=== PATIENT | female | born 1930 | race Caucasian/White ===

== ENCOUNTER → 2017-01-07 | Day surgery (SDC) | payer MEDICARE, OTHER ==
[~2017-01-07] MED LIST: AMLODIPINE BESY10 MG PO; FUROSEMIDE40 MG PO; PRAVASTATIN SOD40 MG PO; PROTONIX40 MG PO; TENORMIN 50 MG50 MG PO
== END | disposition home or self-care (01) ==
LOC: OR 07:17
PROVIDERS: Internal Medicine Gastroenterology
PROC: 0D748ZZ Dilation of Esophagogastric Junction, Via Natural or Artificial Opening Endoscopic (ICD-10-PCS; 2017-01-07)
PROC: 0DB68ZZ Excision of Stomach, Via Natural or Artificial Opening Endoscopic (ICD-10-PCS; principal; 2017-01-07 08:00)
DX: D13.1 Benign neoplasm of stomach (principal); K22.70 Barrett's esophagus without dysplasia; K22.2 Esophageal obstruction; K22.4 Dyskinesia of esophagus; K44.9 Diaphragmatic hernia without obstruction or gangrene; I10 Essential (primary) hypertension; K21.9 Gastro-esophageal reflux disease without esophagitis; M19.90 Unspecified osteoarthritis, unspecified site; M81.0 Age-related osteoporosis without current pathological fracture; F41.9 Anxiety disorder, unspecified; F32.9 Major depressive disorder, single episode, unspecified; Z83.3 Family history of diabetes mellitus; Z82.3 Family history of stroke; Z80.9 Family history of malignant neoplasm, unspecified
CPT/HCPCS: J2250; J3010; J7030